=== PATIENT | male | born 1960 | race Caucasian/White ===

== ENCOUNTER 2023-10-13 05:28 | Day surgery (SDC) | payer BC ==
[2023-10-13] MEDS: Dextrose 5%-0.45% NaCl 1,000 ML IV SCH (05:51)
[2023-10-13] MEDS ORDERED: Midazolam 1 MG/ML 2 ML SDV ONE (06:08)
[2023-10-13] MEDS ORDERED: fentaNYL 100 MCG/2 ML SDV ONE (06:09)
[2023-10-13] MEDS: fentaNYL 100 MCG/2 ML SDV IV ONE ×2 (06:25→06:26)
[2023-10-13] MEDS: Midazolam 1 MG/ML 2 ML SDV IV ONE ×6 (06:26→06:37)
[2023-10-13 08:25] VITALS: BP 128/80; PULSE 47
== END 2023-10-13 08:05 | disposition home or self-care (01) ==
LOC: DL.ENDO 05:28
PROVIDERS: ATTEND Internal Medicine Gastroenterology
DX: D12.8 Benign neoplasm of rectum (principal); K57.30 Diverticulosis of large intestine without perforation or abscess without bleeding; E03.9 Hypothyroidism, unspecified; E78.1 Pure hyperglyceridemia; E66.09 Other obesity due to excess calories; Z68.31 Body mass index [BMI] 31.0-31.9, adult
CPT/HCPCS: 45385; J2250; J3010; J7042